=== PATIENT | male | born 1970 | race Caucasian/White ===

== ENCOUNTER 2017-04-27 10:47 | Emergency (ER) | payer MEDICAID ==
[2017-04-27 11:03] VITALS: BP 107/75; PULSE 78; RESP 18; TEMP 98.1; O2SAT 97
[2017-04-27] MEDS ORDERED: ACETAMINOPHEN 500 MG TAB PO ONE (11:24)
--- NOTE | 2017-04-27 11:27 | EDPHY ---
H & P Time Seen by Provider: 04/27/17 11:09 HPI/ROS: This patient complains of 24 hour history of fever, chills and myalgias. He also reports coryza and a cough occasionally productive of sputum. He is concerned that he may have a fungal lung infection from a contaminant marijuana or from his basement. When asked if he has HIV or any risk factors for HIV he feels that his exposure to is girlfriend who apparently has wrist taking behavior poses an HIV risk for him. He explains that she has promiscuous and using drugs. He requests an HIV test for this reason. He reports some relief of symptoms from ibuprofen 400 mg at 7:00 a.m. the day of evaluation. No other exacerbating factors are noted. ROS: No significant fatigue. Other constitutional symptoms as per HPI HEENT: No facial pain. No ear pain or throat pain. No other complaints neuro : No headache. No focal symptoms Pulmonary: No pleuritic pain or dyspnea. No wheezing. Cardiovascular: No chest pain heart palpitations lightheadedness. No leg swelling. GI: No nausea vomiting or belly pain. Integumentary: No skin rash 7 point ROS is otherwise negative. Past Medical/Surgical History: Otherwise healthy He has not had a flu immunization Smoking Status: Never smoked Physical Exam: General Appearance: Alert, no distress. Eyes: Pupils equal and round no pallor or injection. ENT, Mouth: Mucous membranes moist. Nose: Clear discharge bilaterally. No sinus tenderness to percussion. Oropharynx: Clear with no erythema or exudates or dysphonia. Respiratory: There are no retractions, lungs are clear to auscultation. He has occasional dry cough. Cardiovascular: Regular rate and rhythm. No murmur gallop or rub Gastrointestinal: Abdomen is soft and nontender, no masses, bowel sounds normal. Neurological: GCS 15 Skin: Warm and dry, no rashes. Musculoskeletal: Neck is supple nontender. Extremities are symmetrical, full range of motion. Psychiatric: Patient is anxious. Mood and affect are otherwise normal DIFFERENTIAL DIAGNOSIS: After history and physical exam differential diagnosis was considered for URI, influenza, doubt HIV, anxiety, mild paranoia possibly is a consequence of regular marijuana use. Constitutional: Initial Vital Signs Temperature (C) 36.7 C 04/27/17 10:58 Heart Rate 78 04/27/17 10:58 Respiratory Rate 18 04/27/17 10:58 Blood Pressure 107/75 04/27/17 10:58 O2 Sat (%) 97 04/27/17 10:58 Allergies/Adverse Reactions: No Known Allergies Allergy (Verified 04/27/17 11:03) Home Medications: Medication Instructions Recorded NK [No Known Home Meds] 04/27/17 MDM/Departure - MDM Diagnostics: Patient's CBC is normal in his HIV test is negative. Medications Given: Discontinued Medications Acetaminophen (Tylenol) 1,000 mg PO EDNOW ONE Stop: 04/27/17 11:25 Last Admin: 04/27/17 11:41 Dose: 1,000 mg ED Course/Re-evaluation: I counseled this patient regarding viral URI. I explained that influenza is a possibility but he does not have indications to use Tamiflu. I also explained that while out immunodeficiency significant fungal infection from old exposures very unlikely. He appears quite well clinically with no evidence of lower respiratory infection, sepsis or other concerning findings. - Depart Disposition: Home, Routine, Self-Care Clinical Impression: Viral upper respiratory tract infection with cough Condition: Good Instructions: Upper Respiratory Infection (ED) Additional Instructions: Diagnosis: Viral upper respiratory infection with cough You have influenza or an influenza like illness. The test for this should be back later today or early tomorrow. Plan: Drink plenty fluids [id number] mg per 6 hours as needed for fevers and aches Humidifier Tylenol in addition if needed for discomfort No work until after your fever has resolved for 24 hours or more. Your HIV testing will take 1-2 days. Return for any respiratory distress or other concerns despite the treatment plan. Stand Alone Forms: Work Excuse Referrals: NONE *PRIMARY CARE P,. [Primary Care Provider] - As per Instructions
[2017-04-27 11:53] LABS: % IMMATURE GRANULYOCYTES 0.4 % (0.0-1.1); ABSOLUTE IMMATURE GRANULOCYTES 0.03 10^3/uL (0.00-0.10); ADD DIFF? NO; ADD MORPH? NO; ADD SCAN? NO; ATYPICAL LYMPHOCYTE FLAG 0 (0-99); FRAGMENT RBC FLAG 0 (0-99); HEMATOCRIT 48.9 % (40.0-51.0); HEMOGLOBIN 16.8 g/dL (13.7-17.5); LEFT SHIFT FLG 0 (0-99); LIPEMIA HEMOLYSIS FLAG 90 (0-99); MEAN CELL HEMOGLOBIN 29.9 pg (27.9-34.1); MEAN CELL HEMOGLOBIN CONCENTR. 34.4 g/dL (32.4-36.7); MEAN CELL VOLUME 87.2 fL (81.5-99.8); MEAN PLATELET VOLUME 9.1 fL (8.7-11.7); PLATELET CLUMPS FLAG 0 (0-99); PLATELET COUNT 227 10^3/uL (150-400); RED BLOOD CELL COUNT 5.61 10^6/uL (4.40-6.38); RED CELL DISTRIBUTION WIDTH 12.3 % (11.5-15.2)
== END 2017-04-27 11:48 | disposition home or self-care (01) ==
LOC: CED 10:47
DX: J06.9 Acute upper respiratory infection, unspecified (principal)
CPT/HCPCS: 85025-PO

== ENCOUNTER 2017-07-04 16:46 | Emergency (ER) | payer MEDICAID ==
[2017-07-04 16:54] VITALS: BP 116/74; PULSE 74; RESP 16; TEMP 98.2; O2SAT 95
--- NOTE | 2017-07-04 17:08 | EDPHY ---
H & P Time Seen by Provider: 07/04/17 16:54 HPI/ROS: CHIEF COMPLAINT: "I think I might have a tick bite " HISTORY OF PRESENT ILLNESS: The patient is a 47-year-old male with no past medical history presents to the emergency department concerned that he may have a tick. Patient noticed a small bump on the back of his neck this morning. He did go hiking yesterday. He has had no fevers or chills. No neck pain or stiffness. He has not felt any discharge. No nausea vomiting. REVIEW OF SYSTEMS: My complete review of systems is negative except as mentioned in the HPI. Past Medical/Surgical History: Denies Smoking Status: Never smoked Physical Exam: Vitals noted 36.8, 116/74, 74, 16, 95% on room air GENERAL: Well-appearing, in no acute distress, alert. HEENT: Eyes normal to inspection, normal pharynx, no signs of dehydration. NECK: No thyromegaly, no lymphadenopathy, supple. Patient has a small bump on his posterior neck. There is no palpable fluctuance. Minimal surrounding redness. No obvious bite. No visible tick or insect. RESPIRATORY: Clear to auscultation bilaterally, no rales, rhonchi or wheezing. CVS: Regular rate and rhythm, no rubs, murmurs, or gallops. ABDOMEN: Soft, nontender, nondistended, no organomegaly. BACK: Normal to inspection, no CVA tenderness. SKIN: Normal color, no rash, warm, dry. No pallor. EXTREMITIES: No pedal edema, normal NEURO/PSYCH: Alert and oriented x3, normal mood and affect, normal motor sensory exam. Constitutional: Initial Vital Signs Temperature (C) 36.8 C 07/04/17 16:48 Heart Rate 74 07/04/17 16:48 Respiratory Rate 16 07/04/17 16:48 Blood Pressure 116/74 07/04/17 16:48 O2 Sat (%) 95 07/04/17 16:48 O2 Delivery Mode Room Air Allergies/Adverse Reactions: No Known Allergies Allergy (Verified 04/27/17 11:03) Home Medications: Medication Instructions Recorded Cephalexin [Keflex (*)] 500 mg PO QID 7 Days cap 07/04/17 Medical Decision Making ED Course/Re-evaluation: In the emergency department I discussed possible etiologies with the patient. I answered all his questions. I did not visualize a take at this time. Because he has a small area of erythema he will be treated with antibiotics. I think this is less likely secondary to take and more likely secondary to ingrown hair. Sees no central clearing or lesion indicating an inset/bug/ spider bite or sting. Discussed this with the patient. He is given warnings prior to leaving. He will return with worsening symptoms. Differential Diagnosis: My differential includes but is not limited to cellulitis, abscess, ingrown hair , tick, bug bite, insect sting, foreign body Departure - Departure Disposition: Home, Routine, Self-Care Clinical Impression: Skin lesion of neck Condition: Good Instructions: Cellulitis (ED) Additional Instructions: I could not see a tick on her neck. There is no visible bite location. You been given a course of Keflex to treat possible early skin infection. Return with increasing redness, pain, fever, neck stiffness or any other concerns. Referrals: Olga Feldman MD [Medical Doctor] - 2-3 days without fail
== END 2017-07-04 17:11 | disposition home or self-care (01) ==
LOC: CED 16:46
DX: L98.9 Disorder of the skin and subcutaneous tissue, unspecified (principal)

== ENCOUNTER 2017-10-16 12:41 | Emergency (ER) | payer MEDICAID ==
[2017-10-16 12:51] VITALS: BP 117/77; PULSE 70; RESP 18; TEMP 98; O2SAT 94
--- NOTE | 2017-10-16 13:00 | EDPHY ---
H & P Stated Complaint: c/o Lt flank pain x 2 wks - no trauma and inc.pain Time Seen by Provider: 10/16/17 12:54 HPI/ROS: CHIEF COMPLAINT: Left CVA pain HISTORY OF PRESENT ILLNESS: Patient is a 47-year-old homeless man who comes to the emergency department complaining of pain in his left lower back. He states that it has been present for about 2 weeks particularly with certain movements including bending over or trying to set up. It does not hurt if he lies still. He has not had any dysuria or hematuria. He states that he has been taking ibuprofen and Tylenol without significant relief. He does not remember any particular injury. No fevers. REVIEW OF SYSTEMS: Constitutional: denies: chills, fever, recent illness, recent injury EENTM: denies: blurred vision, double vision, nose congestion Respiratory: denies: cough, shortness of breath Cardiac: denies: chest pain, irregular heart rate, lightheadedness, palpitations Gastrointestinal/Abdominal: denies: abdominal pain, diarrhea, nausea, vomiting, blood streaked stools Genitourinary: denies: dysuria, frequency, hematuria, pain Musculoskeletal: See HPI Skin: denies: lesions, rash, jaundice, bruising Neurological: denies: headache, numbness, paresthesia, tingling, dizziness, weakness Hematologic/Lymphatic: denies: blood clots, easy bleeding, easy bruising Immunologic/allergic: denies: HIV/AIDS, transplant EXAM: GENERAL: Well-appearing, well-nourished and in no acute distress. HEAD: Atraumatic, normocephalic. EYES: Pupils equal round and reactive to light, extraocular movements intact, sclera anicteric, conjunctiva are normal. ENT: TMs normal, nares patent, oropharynx clear without exudates. Moist mucous membranes. NECK: Normal range of motion, supple without lymphadenopathy or JVD. LUNGS: Breath sounds clear to auscultation bilaterally and equal. No wheezes rales or rhonchi. HEART: Regular rate and rhythm without murmurs, rubs or gallops. ABDOMEN: Soft, nontender, normoactive bowel sounds. No guarding, no rebound. No masses appreciated. BACK: Left CVA pain but No CVA tenderness, no spinal tenderness, step-offs or deformities EXTREMITIES: Normal range of motion, no pitting or edema. No clubbing or cyanosis. No radiculopathy NEUROLOGICAL: Cranial nerves II through XII grossly intact. Normal speech, normal gait. 5/5 strength, normal movement in all extremities, normal sensation normal reflexes. Normal balance. PSYCH: Normal mood, normal affect. SKIN: Warm, dry, normal turgor, no visible rashes or lesions. Source: Patient Exam Limitations: No limitations - Personal History Current Tetanus Diphtheria and Acellular Pertussis (TDAP): Yes Tetanus Vaccine Date: within 10 years - Medical/Surgical History Hx Asthma: No Hx Chronic Respiratory Disease: No Hx Diabetes: No Hx Cardiac Disease: No Hx Renal Disease: No Hx Cirrhosis: No Hx Alcoholism: No Hx HIV/AIDS: No Hx Splenectomy or Spleen Trauma: No Other PMH: denies - Family History Significant Family History: No pertinent family hx - Social History Smoking Status: Never smoked Alcohol Use: Occasionally Drug Use: Marijuana Constitutional: Initial Vital Signs Temperature (C) 36.6 C 10/16/17 12:49 Heart Rate 70 10/16/17 12:49 Respiratory Rate 18 10/16/17 12:49 Blood Pressure 117/77 10/16/17 12:49 O2 Sat (%) 94 10/16/17 12:49 O2 Delivery Mode Room Air Allergies/Adverse Reactions: No Known Allergies Allergy (Verified 04/27/17 11:03) Home Medications: Medication Instructions Recorded Diazepam [Valium 5 MG (*)] 5 mg PO TID PRN #10 tab 10/16/17 Medical Decision Making ED Course/Re-evaluation: Patient's urinalysis is unremarkable. We discussed options. We decided not to do any imaging. This appears to be mostly muscular. I will treat him with muscle relaxants. We discussed indications for returning and follow-up. He is happy with this plan. Differential Diagnosis: Partial list of the Differential diagnosis considered include but were not limited to; muscle strain, low back pain, urinary tract infection, kidney stone and although unlikely based on the history and physical exam, I also considered radiculopathy, fracture, spinal compression. I discussed these differential diagnoses and the plan with the patient as well as the usual and expected course. The patient understands that the diagnosis is provisional and that in medicine we are not always correct and that further workup is often warranted. Usual and customary warnings were given. All of the patient's questions were answered. The patient was instructed to return to the emergency department should the symptoms at all worsen or return, otherwise to followup with the physician as we discussed. - Data Points Laboratory Results: 10/16/17 13:00 Urine Color YELLOW Urine Appearance CLEAR Urine pH 5.5 (5.0-7.5) Ur Specific [place] 1.020 (1.002-1.030) Urine Protein NEGATIVE (NEGATIVE) Urine Ketones NEGATIVE (NEGATIVE) Urine Blood NEGATIVE (NEGATIVE) Urine Nitrate NEGATIVE (NEGATIVE) Urine Bilirubin NEGATIVE (NEGATIVE) Urine Urobilinogen 0.2 EU EU (0.2-1.0) Ur Leukocyte Esterase NEGATIVE (NEGATIVE) Urine RBC 0-1 /hpf /hpf (0-3) Urine WBC 1-3 /hpf /hpf (0-3) Ur Epithelial Cells NONE SEEN /lpf /lpf (NONE-1+) Urine Bacteria TRACE /hpf H /hpf (NONE SEEN) Hyaline Casts 0-1 /lpf /lpf (0-1) Urine Mucus 1+ /lpf /lpf (NONE-1+) Urine Glucose NEGATIVE (NEGATIVE) Departure - Departure Disposition: Home, Routine, Self-Care Clinical Impression: Low back pain Qualifiers: Chronicity: acute Back pain laterality: left Sciatica presence: without sciatica Qualified Code(s): M54.5 - Low back pain Condition: Fair Instructions: Low Back Strain (ED) Referrals: NONE *PRIMARY CARE P,. [Primary Care Provider] - As per Instructions Prescriptions: Diazepam [Valium 5 MG (*)] 5 mg PO TID PRN #10 tab PRN Reason: Spasms
== END 2017-10-16 13:30 | disposition home or self-care (01) ==
LOC: CED 12:41
DX: M54.5 Low back pain (principal)
CPT/HCPCS: 81003-PO; 81015-PO

== ENCOUNTER → 2017-10-23 | Outpatient (CLI) | payer MEDICAID | LOC: CIMAGING 11:45 | PROVIDERS: ATTEND Family Medicine | DX: M54.5 Low back pain (principal) | CPT/HCPCS: 72100-PO ==

== ENCOUNTER 2017-12-07 11:03 | Emergency (ER) | payer MEDICAID ==
--- NOTE | 2017-12-07 11:16 | EDPHY ---
H & P Time Seen by Provider: 12/07/17 11:10 HPI/ROS: Chief Complaint: Left middle finger injury HPI: 47-year-old male crushed the tip of his left middle finger when he was closing his sliding window yesterday afternoon.. He is concerned he may have broken it. He does have a hematoma under his nail bed. He also thinks that he may have injured at a week ago as well. Denies prior injuries. Has not taken anything for the pain. ROS: 10 point Review of Systems is negative except as noted in the HPI. PMH: Denies Social History: Denies smoking, positive alcohol, positive marijuana Family History: non-contributory Physical Exam: General: Awake, alert, no acute distress Left hand: Patient has a large subungual hematoma of his left 3rd nail bed. It is tender. Is mildly swollen. There is no extension past the ED IP joint. Has some tenderness on the volar aspect. No significant deformity. Skin: No rash - Personal History Tetanus Vaccine Date: within 10 years - Medical/Surgical History Hx Asthma: No Hx Chronic Respiratory Disease: No Hx Diabetes: No Hx Cardiac Disease: No Hx Renal Disease: No Hx Cirrhosis: No Hx Alcoholism: No Hx HIV/AIDS: No Hx Splenectomy or Spleen Trauma: No Other PMH: denies - Social History Smoking Status: Never smoked Constitutional: Initial Vital Signs Temperature (C) 36.7 C 12/07/17 11:12 Heart Rate 72 12/07/17 11:12 Respiratory Rate 18 12/07/17 11:12 Blood Pressure 145/98 H 12/07/17 11:12 O2 Sat (%) 99 12/07/17 11:12 O2 Delivery Mode Room Air Allergies/Adverse Reactions: No Known Allergies Allergy (Verified 12/07/17 11:16) Home Medications: Medication Instructions Recorded Diazepam [Valium 5 MG (*)] 5 mg PO TID PRN #10 tab 10/16/17 Medical Decision Making - Diagnostics Imaging Results: Imaging Impressions Finger X-Ray 12/07/17 11:13 Impression: Age indeterminant tiny chip fracture volar base middle phalanx adjacent proximal interphalangeal joint. Imaging: I viewed and interpreted images myself Procedures: Procedure: Nail trephination. Indication: Subungual hematoma. Anesthesia: None required Verbal consent was obtained from the patient to drain a subungual hematoma. The patient was prepped in the usual fashion. The subungual hematoma was drained with electrocautery. The subungual hematoma was drained successfully and there were no complications. The procedure was performed by myself. ED Course/Re-evaluation: X-ray noted. Possible avulsion fracture at PIP joint however this is not with patient's injury is. - Data Points Medications Given: Discontinued Medications Ibuprofen (Motrin) 600 mg PO EDNOW ONE Stop: 12/07/17 11:25 Last Admin: 12/07/17 11:29 Dose: 600 mg Departure - Departure Disposition: Home, Routine, Self-Care Clinical Impression: Subungual hematoma of finger Condition: Good Instructions: Subungual Hematoma (ED) Additional Instructions: Alternate acetaminophen (1000 mg) with ibuprofen (400 mg) every 4 hours as needed for pain. Watch for signs of redness, warmth, increasing pain or discharge from the wound. Follow up with primary care physician in 4-5 days for any concerns. Referrals: Tommie Saldana DO [Primary Care Provider] - As per Instructions
[2017-12-07 11:23] VITALS: BP 145/98
[2017-12-07] MEDS ORDERED: IBUPROFEN 600 MG TAB PO ONE (11:24)
== END 2017-12-07 12:03 | disposition home or self-care (01) ==
LOC: CED 11:03
PROC: 0H9QXZZ Drainage of Finger Nail, External Approach (ICD-10-PCS; principal; 2017-12-07)
DX: S60.132A Contusion of left middle finger with damage to nail, initial encounter (principal); W23.0XXA Caught, crushed, jammed, or pinched between moving objects, initial encounter
CPT/HCPCS: 73140-PO

== ENCOUNTER 2018-01-05 08:11 | Emergency (ER) | payer MEDICAID ==
[2018-01-05] MEDS ORDERED: METOCLOPRAMIDE 10 MG/2 ML VIAL IVP ONE (08:57)
[2018-01-05] MEDS ORDERED: HYDROmorphONE/DILAUDID 2 MG/ML INJ IVP ONE (08:57)
[2018-01-05] MEDS ORDERED: ONDANSETRON 4 MG/2 ML VIAL IVP ONE (08:57)
[2018-01-05] MEDS ORDERED: NS 1,000 ML IV ONE ×2 (08:57→08:58)
[2018-01-05] MEDS ORDERED: HYDROmorphONE/DILAUDID 1 MG/ML INJ ONE (08:59)
--- NOTE | 2018-01-05 09:02 | EDPHY ---
H & P Time Seen by Provider: 01/05/18 08:38 HPI/ROS: HPI Vomiting, diarrhea, headache. 47-year-old male by private vehicle. This patient was up by [place] last night. He was with a friend who is getting water from a local well. This was at about 7:00 p.m.. He drank water from this well. He reports he woke up at 5:00 a.m. This morning with nausea, nonbloody nonbilious vomiting, watery diarrhea and a gradual onset frontal headache. He reports that he feels very dehydrated. His headache is worsened since having multiple episodes of vomiting and diarrhea. He denies any bloody or melenic stool. He describes having diffuse abdominal cramping. ROS: Constitutional: No fever, no chills. No weakness. Eyes: No discharge. No changes in vision. ENT: No sore throat. No nasal congestion or rhinorrhea. Respiratory: No cough. No shortness of breath. Cardiac: No chest pain, no palpitations. Gastrointestinal: As above. Genitourinary: No hematuria. No dysuria or increased frequency with urination. Musculoskeletal: No back pain. No neck pain. No myalgias or arthralgias. Skin: No rashes. Neurological: As above. No focal weakness or altered sensation. Past medical history: Denies any significant past medical history. Social history: Nonsmoker. No alcohol. Currently here by himself. Physical Exam: General Appearance: Alert, anxious but not in distress. This patient is responding to questions appropriately and in full sentences. This patient appears well-hydrated and well-nourished. Eyes: Pupils equal and round no pallor or injection. No lid edema, erythema or injection. Mild photophobia. No nystagmus. Respiratory: There are no retractions, lungs are clear to auscultation with good air movement bilaterally. Cardiovascular: Regular rate and rhythm. No murmur. Gastrointestinal: Abdomen is soft and nontender, no masses, bowel sounds normal. No focal tenderness at McBurney's point. No Rider sign. Neurological: Motor sensory function is grossly intact. Cranial nerves are normal. Gait is normal. Skin: Warm and dry, no rashes. Musculoskeletal: Neck is supple and nontender. Extremities are symmetrical. All joints range without pain or impingement. Psychiatric: No agitation. No depression. Database: EKG: Imaging: Procedures: Emergency department course: IV was placed. He was placed on a monitor. Triage vital signs reviewed. He is moderately hypertensive. Vital signs otherwise normal. He will be started on IV normal saline with 1-2 L to be given over the next 1-2 hours. For his headache, nausea and vomiting he will be given 0.5 mg of IV hydromorphone, 10 mg of IV Reglan, 25 mg of IV Benadryl and 4 mg of IV Zofran initially. 10:35 a.m., patient re-evaluated. Sleeping comfortably. Easily arousable. He reports resolution of all symptoms. He is able tolerate oral fluids without issue. He reports his headache has completely gone away. Repeat neurologic Assessment is nonfocal. Neck is supple. No pain on flexion of his neck. No photophobia no nystagmus. Repeat abdominal exam is soft, nontender nondistended. He feels comfortable going home at this time and I feel he is safe for discharge. Follow-up and return to emergency department precautions were reviewed thoroughly with him. All of his questions were answered. He was discharged from the emergency department in good condition. I will prescribe him nausea medication. Differential Diagnosis: The differential diagnosis on this patient includes but is not limited to food borne illness, gastroenteritis, dehydration. Meningitis, encephalitis, subarachnoid hemorrhage, cavernous sinus thrombosis, sagittal sinus thrombosis, temporal arteritis, appendicitis, bowel obstruction, acute cholecystitis, other surgical etiology of vomiting unlikely. This represents a partial list of diagnoses considered. These considerations are based on history, physical exam , past history, reassessment and diagnostic testing. Smoking Status: Never smoked Constitutional: Initial Vital Signs Temperature (C) 36.8 C 01/05/18 08:17 Heart Rate 61 01/05/18 08:17 Respiratory Rate 18 01/05/18 08:17 Blood Pressure 160/76 H 01/05/18 08:17 O2 Sat (%) 98 01/05/18 08:17 O2 Delivery Mode Nasal Cannula O2 (L/minute) 2 Allergies/Adverse Reactions: No Known Allergies Allergy (Verified 01/05/18 08:16) Home Medications: Medication Instructions Recorded Ondansetron Odt [Zofran Odt 4 mg 4 mg PO Q4PRN PRN #10 tab 01/05/18 (*)] Medical Decision Making - Data Points Laboratory Results: Laboratory Results 01/05/18 09:11 01/05/18 09:11 01/05/18 01/05/18 09:11 09:11 WBC 6.42 10^3/uL 10^3/uL (3.80-9.50) RBC 5.49 10^6/uL 10^6/uL (4.40-6.38) Hgb 16.7 g/dL g/dL (13.7-17.5) Hct 48.1 % % (40.0-51.0) MCV 87.6 fL fL (81.5-99.8) MCH 30.4 pg pg (27.9-34.1) MCHC 34.7 g/dL g/dL (32.4-36.7) RDW 12.3 % % (11.5-15.2) Plt Count 252 10^3/uL 10^3/uL (150-400) MPV 9.0 fL fL (8.7-11.7) Neut % (Auto) 64.6 % % (39.3-74.2) Lymph % (Auto) 22.9 % % (15.0-45.0) [place] % (Auto) 10.3 % % (4.5-13.0) Eos % (Auto) 1.6 % % (0.6-7.6) Baso % (Auto) 0.3 % % (0.3-1.7) Nucleat RBC Rel Count 0.0 % % (0.0-0.2) Absolute Neuts (auto) 4.15 10^3/uL 10^3/uL (1.70-6.50) Absolute Lymphs (auto) 1.47 10^3/uL 10^3/uL (1.00-3.00) Absolute Monos (auto) 0.66 10^3/uL 10^3/uL (0.30-0.80) Absolute Eos (auto) 0.10 10^3/uL 10^3/uL (0.03-0.40) Absolute Basos (auto) 0.02 10^3/uL 10^3/uL (0.02-0.10) Absolute Nucleated RBC 0.00 10^3/uL 10^3/uL (0-0.01) Immature Gran % 0.3 % % (0.0-1.1) Immature Gran # 0.02 10^3/uL 10^3/uL (0.00-0.10) Sodium 141 mEq/L mEq/L (135-145) Potassium 4.3 mEq/L mEq/L (3.3-5.0) Chloride 108 mEq/L mEq/L (97-110) Carbon Dioxide 21 mEq/l L mEq/l (22-31) Anion Gap 12 mEq/L mEq/L (8-16) BUN 15 mg/dL mg/dL (7-23) Creatinine 0.8 mg/dL mg/dL (0.7-1.3) Estimated GFR > 60 Glucose 95 mg/dL mg/dL (70-100) Calcium 9.3 mg/dL mg/dL (8.5-10.4) Total Bilirubin 0.6 mg/dL mg/dL (0.1-1.4) Conjugated Bilirubin 0.4 mg/dL mg/dL (0.0-0.5) Unconjugated Bilirubin 0.2 mg/dL mg/dL (0.0-1.1) AST 27 IU/L IU/L (17-59) ALT 56 IU/L IU/L (21-72) Alkaline Phosphatase 57 IU/L IU/L (38-126) Total Protein 7.0 g/dL g/dL (6.3-8.2) Albumin 4.2 g/dL g/dL (3.5-5.0) Lipase 75 IU/L IU/L (23-300) Medications Given: Discontinued Medications Diphenhydramine HCl (Benadryl Injection) 25 mg IVP EDNOW ONE Stop: 01/05/18 08:58 Last Admin: 01/05/18 09:08 Dose: 25 mg Hydromorphone HCl (Dilaudid) 0.5 mg IVP EDNOW ONE Stop: 01/05/18 08:58 Last Admin: 01/05/18 09:09 Dose: 0.5 mg Sodium Chloride (Ns) 1,000 mls @ 0 mls/hr IV ONCE ONE; Wide Open PRN Reason: Protocol Stop: 01/05/18 08:58 Last Admin: 01/05/18 09:06 Dose: 1,000 mls Sodium Chloride (Ns) 1,000 mls @ 0 mls/hr IV EDNOW ONE; Wide Open PRN Reason: Protocol Stop: 01/05/18 08:59 Last Admin: 01/05/18 09:06 Dose: 1,000 mls Metoclopramide HCl (Reglan Injection) 10 mg IVP EDNOW ONE Stop: 01/05/18 08:58 Last Admin: 01/05/18 09:07 Dose: 10 mg Ondansetron HCl (Zofran) 4 mg IVP EDNOW ONE Stop: 01/05/18 08:58 Last Admin: 01/05/18 09:07 Dose: 4 mg Departure - Departure Disposition: Home, Routine, Self-Care Clinical Impression: Headache, Vomiting, Diarrhea Condition: Good Instructions: Gastroenteritis (ED), Acute Headache (ED) Additional Instructions: Read and follow provided instructions. Follow-up with your primary care physician on Monday for re-evaluation Take medication as prescribed for nausea. Return to the emergency department for nausea and vomiting and inability to keep fluids down despite medications, worsening abdominal pain, return of headache, fever, neck pain symptoms or other serious concerns. Referrals: NONE *PRIMARY CARE P,. [Primary Care Provider] - As per Instructions Stand Alone Forms: Work Excuse Prescriptions: Ondansetron Odt [Zofran Odt 4 mg (*)] 4 mg PO Q4PRN PRN #10 tab PRN Reason: For Nausea & Vomiting
[2018-01-05 09:20] LABS: PLATELET COUNT 252 10^3/uL (150-400)
[2018-01-05 10:52] VITALS: BP 103/73
== END 2018-01-05 10:52 | disposition home or self-care (01) ==
LOC: SUPCPDRO 08:11
DX: R51 Headache (principal); R11.10 Vomiting, unspecified; R19.7 Diarrhea, unspecified; E86.9 Volume depletion, unspecified
CPT/HCPCS: 96374; J1170; J1200; J2405; J2765

== ENCOUNTER 2018-12-18 08:08 | Emergency (ER) | payer MEDICAID ==
--- NOTE | 2018-12-18 08:34 | EDPHY ---
H & P Stated Complaint: L flank, groin pain Time Seen by Provider: 12/18/18 08:33 HPI/ROS: CHIEF COMPLAINT: Left lower abdominal pain and low back pain HISTORY OF PRESENT ILLNESS: The patient presents to the ED with 3 days of left lower abdominal pain and low back pain. The patient denies any hematuria or dysuria. 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 The patient denies any history of significant past medical disease. The patient denies any vomiting, hematemesis or melena. The patient reports his pain is moderate in nature and worsened with movement. REVIEW OF SYSTEMS: A comprehensive 10 point review of systems is otherwise negative aside from elements mentioned in the history of present illness. Source: Patient Exam Limitations: No limitations - Personal History Current Tetanus/Diphtheria Vaccine: Yes Current Tetanus Diphtheria and Acellular Pertussis (TDAP): Yes Tetanus Vaccine Date: within 10 years - Medical/Surgical History Hx Asthma: No Hx Chronic Respiratory Disease: No Hx Diabetes: No Hx Cardiac Disease: No Hx Renal Disease: No Hx Cirrhosis: No Hx Alcoholism: No Hx HIV/AIDS: No Hx Splenectomy or Spleen Trauma: No Other PMH: denies - Social History Smoking Status: Never smoked - Physical Exam Exam: General Appearance: Alert, no distress Eyes: Pupils equal and round no pallor or injection ENT, Mouth: Mucous membranes moist Respiratory: There are no retractions, lungs are clear to auscultation Cardiovascular: Regular rate and rhythm Gastrointestinal: Tenderness to palpation left lower quadrant Neurological: A&O, normal motor function, normal sensory exam, normal cranial nerves Skin: Warm and dry, no rashes Musculoskeletal: Tenderness to palpation left sacroiliac region Extremities: symmetrical, full range of motion Psychiatric: Patient is oriented X 3, there is no agitation Constitutional: Initial Vital Signs Temperature (C) 36.7 C 12/18/18 08:19 Heart Rate 50 L 12/18/18 08:19 Respiratory Rate 16 12/18/18 08:19 Blood Pressure 107/67 12/18/18 08:19 O2 Sat (%) 96 12/18/18 08:19 O2 Delivery Mode Room Air Allergies/Adverse Reactions: No Known Allergies Allergy (Verified 12/18/18 08:18) Medical Decision Making - Diagnostics Imaging Results: Imaging Impressions Abdomen/Pelvis CT 12/18/18 08:36 Impression: 1. No acute findings. 2. Constipation. 3. Diverticulosis without evidence of diverticulitis. 4. Additional findings as above. Findings discussed with Huan Corey 12/18/2018 at 9:57. Attention: This CT examination is specifically designed to evaluate patients who are clinically suspected of having acute obstructive uropathy. This examination does not use radiographic contrast and provides only a limited evaluation of the abdomen, pelvis and retroperitoneum. If there is further clinical suspicion for pathological conditions other than obstructive uropathy, a complete CT evaluation of the abdomen and pelvis utilizing intravenous and enteric contrast should be considered. ED Course/Re-evaluation: Patient presents the ED for evaluation of left lower quadrant pain and back pain. Patient was noted to have moderate tenderness in the left lower quadrant. CT scan of the abdomen pelvis demonstrates no evidence of diverticulitis, perforation or abscess. The patient does have moderate constipation. Clinically the patient is also having some discomfort in his sacroiliac joint. There is no evidence of a obvious kidney stone or lumbar pathology. The patient's urinalysis demonstrates no evidence of infection. His laboratory studies are unremarkable. I re-evaluated the patient at 10:00 a.m.. He has been advised to use ibuprofen for management of his sacroiliac pain. The patient should also use over-the- counter laxatives today including MiraLax and milk of magnesia. Patient is advised to return to the emergency department for markedly worsening symptoms or other concerns. Differential Diagnosis: Differential diagnosis considered includes nephrolithiasis, pyelonephritis, myofascial strain, diverticulitis, perforation, abscess, constipation - Data Points Laboratory Results: Laboratory Results 12/18/18 08:53 12/18/18 08:53 12/18/18 12/18/18 12/18/18 08:53 08:53 08:25 WBC 6.06 10^3/uL 10^3/uL (3.80-9.50) RBC 5.39 10^6/uL 10^6/uL (4.40-6.38) Hgb 16.2 g/dL g/dL (13.7-17.5) Hct 46.5 % % (40.0-51.0) MCV 86.3 fL fL (81.5-99.8) MCH 30.1 pg pg (27.9-34.1) MCHC 34.8 g/dL g/dL (32.4-36.7) RDW 12.4 % % (11.5-15.2) Plt Count 258 10^3/uL 10^3/uL (150-400) MPV 9.1 fL fL (8.7-11.7) Neut % (Auto) 64.5 % % (39.3-74.2) Lymph % (Auto) 22.9 % % (15.0-45.0) Drew % (Auto) 9.2 % % (4.5-13.0) Eos % (Auto) 2.1 % % (0.6-7.6) Baso % (Auto) 0.8 % % (0.3-1.7) Nucleat RBC Rel Count 0.0 % % (0.0-0.2) Absolute Neuts (auto) 3.90 10^3/uL 10^3/uL (1.70-6.50) Absolute Lymphs (auto) 1.39 10^3/uL 10^3/uL (1.00-3.00) Absolute Monos (auto) 0.56 10^3/uL 10^3/uL (0.30-0.80) Absolute Eos (auto) 0.13 10^3/uL 10^3/uL (0.03-0.40) Absolute Basos (auto) 0.05 10^3/uL 10^3/uL (0.02-0.10) Absolute Nucleated RBC 0.00 10^3/uL 10^3/uL (0-0.01) Immature Gran % 0.5 % % (0.0-1.1) Immature Gran # 0.03 10^3/uL 10^3/uL (0.00-0.10) Sodium 138 mEq/L mEq/L (135-145) Potassium 4.3 mEq/L mEq/L (3.5-5.2) Chloride 106 mEq/L mEq/L (97-110) Carbon Dioxide 23 mEq/l mEq/l (22-31) Anion Gap 9 mEq/L mEq/L (6-14) BUN 14 mg/dL mg/dL (7-23) Creatinine 0.7 mg/dL mg/dL (0.7-1.3) Estimated GFR > 60 Glucose 101 mg/dL H mg/dL (70-100) Calcium 9.2 mg/dL mg/dL (8.5-10.4) Urine Color YELLOW Urine Appearance CLEAR Urine pH 5.0 (5.0-7.5) Ur Specific [place] 1.024 (1.002-1.030) Urine Protein NEGATIVE (NEGATIVE) Urine Ketones NEGATIVE (NEGATIVE) Urine Blood NEGATIVE (NEGATIVE) Urine Nitrate NEGATIVE (NEGATIVE) Urine Bilirubin NEGATIVE (NEGATIVE) Urine Urobilinogen NEGATIVE EU EU (0.2-1.0) Ur Leukocyte Esterase NEGATIVE (NEGATIVE) Urine Glucose NEGATIVE (NEGATIVE) Medications Given: Discontinued Medications Sodium Chloride (Ns) 1,000 mls @ 0 mls/hr IV EDNOW ONE; Wide Open PRN Reason: Protocol Stop: 12/18/18 08:38 Last Admin: 12/18/18 09:03 Dose: 1,000 mls Ketorolac Tromethamine (Toradol) 30 mg IVP EDNOW ONE Stop: 12/18/18 08:38 Last Admin: 12/18/18 09:03 Dose: 30 mg Departure - Departure Disposition: Home, Routine, Self-Care Clinical Impression: Sacroiliitis, Constipation Condition: Good Instructions: Sacroiliitis (ED), Constipation (DC) Additional Instructions: 1 Take Ibuprofen or Motrin 600 mg by mouth three times a day. 2. Please use milk of magnesia and MiraLax for constipation. 3. Please return to the ED for markedly worsening symptoms or other concerns. Referrals: Tommie Saldana DO [Primary Care Provider] - As per Instructions
[2018-12-18] MEDS ORDERED: NS 1,000 ML IV ONE (08:37)
[2018-12-18] MEDS ORDERED: KETOROLAC 30 MG/1 ML SDV IVP ONE (08:37)
[2018-12-18 09:16] LABS: PLATELET COUNT 258 10^3/uL (150-400)
[2018-12-18 10:37] VITALS: BP 112/77
== END 2018-12-18 10:41 | disposition home or self-care (01) ==
DX: M46.1 Sacroiliitis, not elsewhere classified (principal); K59.00 Constipation, unspecified; K57.30 Diverticulosis of large intestine without perforation or abscess without bleeding; E86.9 Volume depletion, unspecified
CPT/HCPCS: 96374; J1885